=== PATIENT | male | born 1950 | race Caucasian/White ===

== ENCOUNTER → 2018-06-27 07:54 | Outpatient (CLI) | payer MEDICARE, SELFPAY ==
[2018-06-27 09:44] LABS: Add Manual Diff / Slide Review NO; Eosinophils Percent Auto 2.6 % (2-4); Hematocrit 39.8 % (41-53); Hemoglobin 13.7 g/dL (13.5-17.5); Lymphocytes Percent Auto 18.3 % (25-40); Mean Corpuscular HGB Conc 34.4 % (30-36); Mean Corpuscular Volume 90.2 fL (80-100); Neutrophils Absolute Auto 2700 /uL (3000-5900); Neutrophils Percent Auto 62.1 % (50-75); Platelet Count 310 X10^3/uL (150-400); Red Blood Cell Count 4.42 X10^6/uL (4.5-5.9); Red Cell Distribution Width 13.8 % (11.6-14.8); White Blood Cell Count 4.4 X10^3/uL (4.5-11.0)
[2018-06-27 09:50] LABS: Hemoglobin A1C% w Est Avg Glu 9.1 % (4.0-6.0)
[2018-06-27 10:45] LABS: Creatinine Urine Random 67.9 mg/dL
[2018-06-27 10:49] LABS: Microalbumi Creatinin Ratio Ur 17.6 ug/mg CR (<30); Microalbumin Urine Random 1.2 mg/dL (0-1.6)
[2018-06-27 10:50] LABS: Alanine Aminotransferase 61 IU/L (21-72); Albumin 3.9 g/dL (3.5-5.0); Albumin Globulin Ratio 1.1 (1.0-2.8); Alkaline Phosphatase 115 U/L (38-126); Aspartate Aminotransferase 36 IU/L (17-59); Bilirubin Total 0.5 mg/dL (0.2-1.3); Blood Urea Nitrogen 14 mg/dL (9-20); Calcium 9.5 mg/dL (8.4-10.2); Carbon Dioxide 29 mmol/L (22-32); Chloride 100 mmol/L (98-107); Cholesterol 125 mg/dL (140-199); Estimated Glomerular Filt Rate > 60.0 mL/min (>60); Globulin 3.7 g/dL (1.7-4.1); Glucose 98 mg/dL (80-110); HDL Cholesterol 27 mg/dL (40-60); HEMOLYSIS < 15 (0-50); LDL Cholesterol Calculated 90 mg/dL (<100); Potassium 4.2 mmol/L (3.4-5.1); Sodium 141 mmol/L (137-145); Total Protein 7.6 g/dL (6.3-8.2); Triglycerides 41 mg/dL (35-150)
[2018-06-27 11:15] LABS: Thyroid Stimulating Hormone 2.97 uIU/mL (0.47-4.68)
[2018-06-27 11:16] LABS: Prostate Specific Antigen Scrn 0.205 ng/mL (0.1-4.0)
== END ==
PROVIDERS: Family Provider Family Medicine; PCP Family Medicine; Visit Provider Family Medicine
DX: E11.9 Type 2 diabetes mellitus without complications (principal); E11.319 Type 2 diabetes mellitus with unspecified diabetic retinopathy without macular edema; E03.9 Hypothyroidism, unspecified; E78.00 Pure hypercholesterolemia, unspecified; Z00.00 Encounter for general adult medical examination without abnormal findings
CPT/HCPCS: 36415; 80053; 80061; 82043; 82570; 83036; 84443; 85025; G0103

== ENCOUNTER → 2018-11-09 09:04 | Outpatient (CLI) | payer MEDICARE, SELFPAY ==
--- NOTE | 2018-11-09 | DI.RAD.S_ITS ---
PROCEDURE: FL UPPER GI W AIR INDICATIONS: DYSPHAGIA/HYPOTHYROIDISM COMPARISON: None. FINDINGS: KUB: Preprocedural roustabout crew film demonstrates a normal bowel gas pattern. No suspicious abdominal calcifications. Visualized solid organ contours appear normal. Bony structures demonstrate a T12 compression fracture and asymmetric L4-5 disc height loss. Esophagus: Esophageal mucosa is normal on air-contrast views. On single-contrast views, there are moderate reactive tertiary contractions of the distal esophagus. There no fixed strictures. There is a small hiatal hernia in the recumbent position. No visible diverticula. A moderate amount of elicited gastroesophageal reflux is present in the recumbent position. Stomach: The stomach is normally distensible, with normal rugal fold thickness. No mucosal masses or ulcers. Pylorus and duodenal bulb appear normal in morphology. Duodenal folds are normal in thickness as well. There was prompt gastric emptying resulted in suboptimal coating of the stomach. IMPRESSION: 1. Small hiatal hernia in the recumbent position only. 2. Moderate inducible gastroesophageal reflux in the recumbent position. 3. Moderate tertiary contractions of the distal esophagus. 4. Normal stomach and proximal bowel loops. Dictated by: Nissa Bethea M.D. on 11/09/2018 at 11:34 Approved by: Nissa Bethea M.D. on 11/09/2018 at 11:59
== END ==
PROVIDERS: Family Provider Family Medicine; PCP Family Medicine; Visit Provider Family Medicine
DX: R13.10 Dysphagia, unspecified (principal); K44.9 Diaphragmatic hernia without obstruction or gangrene; K21.9 Gastro-esophageal reflux disease without esophagitis; E03.9 Hypothyroidism, unspecified
CPT/HCPCS: 74247

== ENCOUNTER → 2019-05-29 07:50 | Outpatient (CLI) | payer MEDICARE, SELFPAY ==
[2019-05-29 09:28] LABS: Creatinine Urine Random 37.8 mg/dL; Hemoglobin A1C% w Est Avg Glu 8.9 % (4.0-6.0)
[2019-05-29 09:29] LABS: Cholesterol 132 mg/dL (140-199); HDL Cholesterol 27 mg/dL (40-60); LDL Cholesterol Calculated 98 mg/dL (<100); Triglycerides 33 mg/dL (35-150)
[2019-05-29 09:42] LABS: Microalbumi Creatinin Ratio Ur 15.8 ug/mg CR (<30); Microalbumin Urine Random < 0.6 mg/dL (0-1.6)
== END ==
PROVIDERS: PCP Family Medicine; Visit Provider Family Medicine
DX: E11.9 Type 2 diabetes mellitus without complications (principal); E11.319 Type 2 diabetes mellitus with unspecified diabetic retinopathy without macular edema
CPT/HCPCS: 36415; 80061; 82043; 82570; 83036

== ENCOUNTER 2019-06-14 06:20 | Day surgery (SDC) | payer MEDICARE, SELFPAY ==
[2019-06-08 14:53] VITALS: BMI 24.8
[2019-06-14] VITALS (10 sets, daily range): BP systolic 112–148; BP diastolic 60–83; PULSE 46–62; RESP 8–20; TEMP 36.1–36.6; O2SAT 94–99; BMI 24.4
[2019-06-14] MEDS: LACTATED RINGERS 1,000 ML 42 ML IV ×2 (07:26→11:10)
--- NOTE | 2019-06-14 07:54 | PM.HP.1 ---
History of Present Illness History of Present Illness Date Patient Seen: 06/14/19 Time Patient Seen: 07:47 Chief complaint: [id number] Narrative: The patient is a gentleman here for repair bilateral inguinal hernias. There are longstanding. Patient History Medical History Arthritis (Acute) Diabetes (Chronic) GERD (gastroesophageal reflux disease) (Acute) Hearing impaired (Acute) Surgical History Hx of appendectomy (Resolved) Hx of total knee replacement (Resolved) Social History marital status: household members: spouse and friend(s) occupational status: employed Smoking Status: Never smoker alcohol intake: never substance use type: does not use Family & Social History Social History: household members spouse,friend(s) Tobacco & Substance use: Smoking Status Never smoker alcohol intake never Substance Use Type does not use Meds Home Medications and Allergies Home Medications Medication Instructions Recorded Confirmed Type insulin glargine 100 unit/mL (3 15 unit SUBCUT BID 04/21/19 06/14/19 History mL) subcutaneous pen insulin lispro 100) 100 unit/mL 2 - 10 unit SUBCUT QAC 04/21/19 06/14/19 History subcutaneous pen levothyroxine 125 mcg capsule 175 mcg PO DAILY 04/21/19 06/14/19 History omeprazole 20 mg PO DAILY 06/08/19 06/14/19 History meloxicam 15 mg PO DAILY PRN 06/14/19 06/14/19 History Allergies Allergy/AdvReac Type Severity Reaction Status Date / Time Penicillins Allergy Unknown Rash Verified 06/14/19 07:36 Review of Systems Review of Systems ROS Unobtainable: All systems reviewed & are unremarkable except as noted in HPI and below Exam Vital Signs (past 8 hours): - 06/14/19 07:04 Temperature 97.9 F Pulse Rate 62 Respiratory Rate 15 Blood Pressure 148/81 H Pulse Oximetry 98 Oxygen Delivery Method Room Air Narrative Exam Narrative: Operative no apparent distress. Eyes are nonicteric. Lungs are clear. Heart regular rate and rhythm without murmur gallop. Abdomen is scaphoid soft nontender without mass. He has bilateral reducible inguinal hernias. Alert and oriented x3. Assessment & Plan Assessment & Plan narrative: Bilateral inguinal hernias. He is also diabetic and has reflux and hypothyroidism. I have discussed the procedure with him. Risks bleeding infection nerve injury testicular injury vas deferens injury all discussed. Chronic pain or numbness discussed. He asked about the use of mesh and desires to have it used to reduce the risk of recurrence as compared with suture repair
--- NOTE | 2019-06-14 07:57 | PM.PREOP ---
Pre-operative Note Interval Note History & Physical reviewed/Exam performed by Physician: Yes Changes to H&P: No
[2019-06-14] MEDS: CEFAZOLIN 2 GM/100 ML FROZ.PIGGY IV (08:00)
--- NOTE | 2019-06-14 08:21 | SUR.OPER ---
Supine on padded OR bed, head on pillow, arms secured on padded arm boards at <90 degrees abduction, legs uncrossed, safety belt at thigh, tape over blanket over lower legs.
--- NOTE | 2019-06-14 08:29 | SUR.OPER ---
Patient's CBG rechecked at 0830. = 151. recheck in 1 hour.
[2019-06-14] MEDS: BUPIVACAINE 0.5% (PF) VIAL 30 ML INJ (08:32)
--- NOTE | 2019-06-14 09:35 | SUR.OPER ---
BLOOD GLUCOSE 122 AT 0930
--- NOTE | 2019-06-14 10:23 | SUR.PHASEI ---
1018 Pt. aroused spontaneously, oral airway dc'd. Dr Vale informed of glucose 162; no orders. HR 40s-50's: no orders unless symptomatic. 1024 Very drowsy, looking around, moving, taking ice chips, but doesn't answer questions regarding pain or nausea.
--- NOTE | 2019-06-14 10:32 | SUR.PHASEI ---
HOB elevated, water given. Denies dizziness. Rates pain 6/10, desires IV rx.
[2019-06-14] MEDS: fentaNYL 100 MCG/2 ML INJ 50 MCG IV ×2 (10:35→10:50)
--- NOTE | 2019-06-14 10:41 | PM.OP.1 ---
Operative Date/Time/Diagnoses Date of procedure: 06/14/19 Time of procedure: 10:10 Pre-op diagnosis: Bilateral inguinal hernias. Reducible. Post-op diagnosis: same (Indirect.) Procedure & Clinicians Procedure: Repair with plug and patch technique bilateral Same procedure as scheduled: Yes Indications: Symptomatic hernias Surgeon: Ben Hayes Click Yes if Unassisted: Yes Anesthesia Type: General Operative Notes Findings: Bilateral indirect hernias Closure Type: primary Specimen(s): none sent Prosthetic devices, grafts, tissues, transplants, or devices: Mesh Estimated Blood Loss (mL): 15 Blood products transfused: none Procedure in detail: The patient was placed supine on the operating room table and underwent general LMA anesthesia. He was prepped and draped in the usual fashion. A transverse incision was made overlying the internal ring on the right and carried down to the level of the external oblique. The external oblique was opened parallel with its fibers through the external ring. The cord structures were elevated. The cremaster was opened proximally and search made for an indirect sac. One was found. It was from surrounding structures, opened and found to have no contents. A 2 0 silk pursestring was used to close it and then an additional tie placed. The stump was allowed to retract. A medium plug was placed in the defect created by the hernia sac. Was tacked into place with interrupted 0 Ethibond suture. The cremaster was closed with 3 0 Vicryl.. The floor was examined and was found to be fairly intact.. A patch was placed across the floor and tacked at the pubic tubercle, the posterior lamella of the anterior rectus sheath, the ilioinguinal ligament, and superior lateral to the cord. The opening was modified as necessary to prevent tight constriction of the cord. Sutures of 0 Ethibond were used to secure the mesh. The external oblique was closed with a running 3 0 Vicryl. The subcu was closed with interrupted 3 0 Vicryl. The skin was closed with a running 4 0 Vicryl subcuticular stitch . And identical repair was performed on the opposite side. The findings were essentially the same. The repair was done in the same manner as was the closure. Once completed local anesthetic was infiltrated around both incisions. Mastisol and Steri-Strips were applied to both sides. Dressings were applied, the patient was awakened, and the patient was taken to the recovery area in good condition. Complications: none Post-operative Condition: stable Disposition: PACU
[2019-06-14] MEDS: OXYCODONE/ACETAMINOPHEN 5/325 TABLET 1 TAB PO (10:50)
--- NOTE | 2019-06-14 10:57 | SUR.PHASEI ---
1050 IV and PO rx given; (applesause prior to PO). Put back on O2 at 2LNP for desat down to 88%, rebounded quickly when encouraged to deep breath.
--- NOTE | 2019-06-14 11:08 | SUR.PHASEI ---
Blood sugar 191, phoned into the OR, do not treat per Dr. Vale/Minerva, RN
--- NOTE | 2019-06-14 11:25 | SUR.PHASEI ---
Report given, dressings remain CDI, OPD will check O2 level to confirm maintaining sat. Very drowsy, minimal verbal responses.
== END 2019-06-14 11:50 | disposition home or self-care (01) ==
PROVIDERS: PCP Family Medicine; Visit Provider Specialist
PROC: (CPT 49505; principal; 2019-06-14 07:45)
DX: K40.20 Bilateral inguinal hernia, without obstruction or gangrene, not specified as recurrent (principal); E11.9 Type 2 diabetes mellitus without complications; Z79.4 Long term (current) use of insulin
CPT/HCPCS: 49505; C1781; J0690; J2405; J2704; J3010

== ENCOUNTER → 2019-07-22 15:02 | Outpatient (CLI) | payer MEDICARE, SELFPAY ==
--- NOTE | 2019-07-22 | DI.RAD.S_ITS ---
PROCEDURE: XR WRIST LT MIN 3V INDICATIONS: BILATERAL WRIST PAIN TECHNIQUE: 3 views of the wrist were acquired. COMPARISON: [facility], CR, XR WRIST RT MIN 3V, 07/22/2019, 15:02. FINDINGS: Bones: No fractures or dislocations. No suspicious bony lesions. There is severe degenerative changes at the radial carpal joint, first metacarpal joint, and moderate degenerative joint disease in multiple intercarpal joints. There is a lucency in the distal ulna. There is bony erosion in the distal radius at the distal radioulnar joint. Soft tissues: Vascular calcifications consistent with atherosclerosis. IMPRESSION: 1. Severe osteoarthritis. 2. There is erosion in the distal radius at the at the distal radioulnar joint, raising the concern of erosive OA 3. Lucency in distal ulna is most likely caused by a large cyst. If there is persistent history of cancer and clinical suspicion for metastatic disease, MRI is suggested for further evaluation. Dictated by: Luther Bob M.D. on 07/22/2019 at 17:20 Approved by: Luther Bob M.D. on 07/22/2019 at 17:24
--- NOTE | 2019-07-22 | DI.RAD.S_ITS ---
PROCEDURE: XR WRIST RT MIN 3V INDICATIONS: BILATERAL WRIST PAIN TECHNIQUE: 3 views of the wrist were acquired. COMPARISON: None. FINDINGS: Bones: No fractures or dislocations. No suspicious bony lesions. There is severe degenerative joint disease in radiocarpal joint, ulnocarpal joint and triscaphe joint. Lucencies in the distal radius, distal ulna and carpal bones are most likely geodes. There is erosion in distal radius along the greater carpal articular surface. Soft tissues: Vascular calcifications consistent with atherosclerosis. There is mild soft tissue swelling. IMPRESSION: Severe degenerative joint disease. There is bone erosion in the distal radius suggesting an inflammatory arthritis such as erosive OA or rheumatoid arthritis. Recommend clinical correlation. Dictated by: Luther Bob M.D. on 07/22/2019 at 17:24 Approved by: Luther Bob M.D. on 07/22/2019 at 17:27
== END ==
PROVIDERS: PCP Family Medicine; Visit Provider Family Medicine
DX: M25.532 Pain in left wrist (principal); M25.531 Pain in right wrist; M19.032 Primary osteoarthritis, left wrist; M19.031 Primary osteoarthritis, right wrist
CPT/HCPCS: 73110

== ENCOUNTER 2019-08-31 07:35 | Day surgery (SDC) | payer MEDICARE, SELFPAY ==
[2019-08-31 08:05] VITALS: BP 133/79; PULSE 76; RESP 15; TEMP 36.4; O2SAT 96; BMI 24.4
[2019-08-31] MEDS: SODIUM CHLORIDE 0.9% 1,000 ML 200 ML IV (08:48)
--- NOTE | 2019-08-31 08:48 | PM.HP.1 ---
History of Present Illness History of Present Illness Date Patient Seen: 08/31/19 Time Patient Seen: 08:48 Chief complaint: [id number] Narrative: Patient is a gentleman who has some difficulty swallowing. Sometimes it feels like food gets stuck in his upper throat another times done at the bottom of his chest. He is here for an EGD Patient History Medical History Arthritis (Acute) Diabetes (Chronic) GERD (gastroesophageal reflux disease) (Acute) Hearing impaired (Acute) Surgical History (Updated 08/31/19 @ 08:49 by Ben Hayes MD) Hx of appendectomy (Resolved) Hx of total knee replacement (Resolved) Status post bilateral inguinal hernia repair, follow-up exam (Inactive) Family & Social History Social History: household members spouse,friend(s) Tobacco & Substance use: Smoking Status Never smoker alcohol intake never Substance Use Type does not use Meds Home Medications and Allergies Home Medications Medication Instructions Recorded Confirmed Type insulin glargine 100 unit/mL (3 15 unit SUBCUT BID 04/21/19 08/31/19 History mL) subcutaneous pen insulin lispro 100 unit/mL 2 - 10 unit SUBCUT QAC 04/21/19 08/31/19 History subcutaneous pen levothyroxine 125 mcg capsule 175 mcg PO DAILY 04/21/19 08/31/19 History Allergies Allergy/AdvReac Type Severity Reaction Status Date / Time Penicillins Allergy Unknown Rash Verified 08/31/19 07:56 Review of Systems Review of Systems ROS Unobtainable: All systems reviewed & are unremarkable except as noted in HPI and below Endocrine Comments: Blood sugar was low this morning any took some apple juice. Present sugar 120 Exam Vital Signs (past 8 hours): - 08/31/19 08:05 Temperature 97.6 F Pulse Rate 76 Respiratory Rate 15 Blood Pressure 133/79 Pulse Oximetry 96 Oxygen Delivery Method Room Air Narrative Exam Narrative: Pleasant cooperative patient no apparent distress. Lungs are clear to auscultation. No rales or rhonchi. Heart regular rate and rhythm no murmur gallop. Abdomen is soft nontender without mass. No obvious hernias. Patient is alert and oriented x3. Assessment & Plan Assessment & Plan narrative: Patient with dysphagia for an EGD and possible dilatation. I've discussed this with the patient including risks of bleeding and perforation. Appears to understand wishes to proceed.
[2019-08-31] MEDS: LIDOCAINE 4% SOLN 50 ML 20 ML TOP (08:54)
[2019-08-31] MEDS: fentaNYL 250 MCG/5 ML INJ IV (08:57)
[2019-08-31] MEDS: MIDAZOLAM 5 MG/5 ML VIAL IV (08:57)
--- NOTE | 2019-08-31 09:05 | PM.OP.ENDO ---
Operative Date/Time/Diagnoses Date of procedure: 08/31/19 Time of procedure: 09:05 Pre-op diagnosis: Dysphagia Post-op diagnosis: same (Nodule superior to the epiglottis.) Procedure & Clinicians Study performed: EGD Same procedure as scheduled: Yes Indications: Dysphagia Surgeon: Ben Hayes Procedure Notes SCOAP/Timeout: Per formed Procedure in detail: The patient had topical anesthetic applied to oropharynx. She was placed in left lateral decubitus position and underwent IV sedation directed by the surgeon consisting of fentanyl and Versed. A bite block was inserted and the scope was advanced through it into the oropharynx. As I passed the base of the tongue I encountered a nodule that was above and separate from the epiglottis. The scope was passed under direct vision into the esophagus. The esophagus was unremarkable. There was no evidence of a hiatal hernia from above.. The stomach insufflated well. There were no lesions seen in the body, antrum or at the incisura. The pyloric channel was patent. The duodenum was unremarkable to the 3rd part. The scope was brought back into the stomach and retroflexed. The proximal stomach was normal. There may be a very small hiatal hernia seen on retroflexed view. This was not apparent advancing through the esophagus however.. The scope was straightened and brought out through the esophagus again. No lesions were seen. There was no narrowing in the esophagus. The distal esophagus and the proximal were carefully examined and I could see no evidence of narrowing. The scope was removed and the patient tolerated the procedure well. Scope withdrawal time: Not applicable Sedation minutes: 9 Findings: other findings (Nodule near the base of the tongue) Specimen(s): none sent Complications: none Post-procedure Recommendations: Other recommendation (Will refer to ENT to evaluate the nodule I saw. Photographs will be given to the patient.) Follow up: as needed Disposition: PACU
[2019-08-31 09:14] VITALS: BP 113/64; PULSE 56; RESP 12; O2SAT 93
[2019-08-31 09:15] VITALS: BP 109/70; PULSE 59; RESP 13; O2SAT 92
[2019-08-31 09:19] VITALS: BP 109/68; PULSE 66; RESP 13; O2SAT 96
[2019-08-31 09:25] VITALS: BP 125/74; PULSE 61; RESP 16; O2SAT 96
[2019-08-31 09:28] VITALS: BP 112/67; PULSE 60; RESP 10; TEMP 36.5; O2SAT 97
== END 2019-08-31 09:49 | disposition home or self-care (01) ==
PROVIDERS: PCP Family Medicine; Visit Provider Specialist
PROC: 0DJ08ZZ Inspection of Upper Intestinal Tract, Via Natural or Artificial Opening Endoscopic (ICD-10-PCS; CPT 43235; principal; 2019-08-31 08:45)
DX: J38.7 Other diseases of larynx (principal); K21.9 Gastro-esophageal reflux disease without esophagitis; E11.9 Type 2 diabetes mellitus without complications
CPT/HCPCS: 43235; 99152; J2250; J3010

== ENCOUNTER → 2019-12-30 10:56 | Outpatient (CLI) | payer MEDICARE, SELFPAY ==
[2019-12-30 12:11] LABS: Add Manual Diff / Slide Review NO; Basophils Absolute Auto 0 /uL (0-100); Basophils Percent Auto 0.5 % (0-2); Eosinophils Absolute Auto 100 /uL (0-450); Eosinophils Percent Auto 1.6 % (2-4); Hemoglobin 12.3 g/dL (13.5-17.5); Lymphocytes Absolute Auto 1000 /uL (1100-4500); Lymphocytes Percent Auto 17.4 % (25-40); Mean Corpuscular HGB Conc 34.1 % (30-36); Mean Corpuscular Hemoglobin 31.5 PG (26-34); Mean Corpuscular Volume 92.3 fL (80-100); Monocytes Absolute Auto 300 /uL (0-900); Monocytes Percent Auto 5.4 % (3-14); Neutrophils Absolute Auto 4200 /uL (1500-7000); Neutrophils Percent Auto 75.1 % (50-75); Platelet Count 286 X10^3/uL (150-400); White Blood Cell Count 5.6 X10^3/uL (4.5-11.0)
[2019-12-30 12:28] LABS: Alanine Aminotransferase 29 IU/L (<50); Albumin Globulin Ratio 1.1 (1.0-2.8); Alkaline Phosphatase 109 U/L (38-126); Aspartate Aminotransferase 27 IU/L (17-59); Bilirubin Total 0.3 mg/dL (0.2-1.3); Blood Urea Nitrogen 24 mg/dL (9-20); Calcium 9.8 mg/dL (8.4-10.2); Carbon Dioxide 24 mmol/L (22-32); Chloride 99 mmol/L (98-107); Estimated Glomerular Filt Rate > 60.0 mL/min (>60); Globulin 3.7 g/dL (1.7-4.1); Glucose 275 mg/dL (80-110); HEMOLYSIS < 15 (0-50); Potassium 4.5 mmol/L (3.4-5.1); Sodium 134 mmol/L (137-145); Total Protein 7.7 g/dL (6.3-8.2)
[2019-12-30 12:29] LABS: C-Reactive Protein Quant < 0.5 mg/dL (<1.0)
[2019-12-30 12:32] LABS: Erythrocyte Sedimentation Rate 59 MM/HR (0-15)
== END ==
PROVIDERS: PCP Family Medicine; Referring Provider Internal Medicine Rheumatology; Visit Provider Internal Medicine Rheumatology
DX: M19.90 Unspecified osteoarthritis, unspecified site (principal)
CPT/HCPCS: 36415; 80053; 85025; 85651; 86140

== ENCOUNTER → 2020-02-29 09:30 | Outpatient (CLI) | payer MEDICARE, SELFPAY ==
[2020-02-29 11:08] LABS: Hemoglobin A1C% w Est Avg Glu 9.4 % (4.0-6.0)
[2020-02-29 11:26] LABS: Alanine Aminotransferase 32 IU/L (<50); Albumin 3.8 g/dL (3.5-5.0); Albumin Globulin Ratio 1.2 (1.0-2.8); Alkaline Phosphatase 96 U/L (38-126); Aspartate Aminotransferase 29 IU/L (17-59); BUN Creatinine Ratio 23.1 (6-22); Bilirubin Total 0.6 mg/dL (0.2-1.3); Blood Urea Nitrogen 21 mg/dL (9-20); Calcium 9.6 mg/dL (8.4-10.2); Carbon Dioxide 24 mmol/L (22-32); Chloride 103 mmol/L (98-107); Estimated Glomerular Filt Rate > 60.0 mL/min (>60); Globulin 3.2 g/dL (1.7-4.1); Glucose 123 mg/dL (80-110); HEMOLYSIS < 15 (0-50); Potassium 4.6 mmol/L (3.4-5.1); Sodium 135 mmol/L (137-145)
== END ==
PROVIDERS: PCP Family Medicine; Referring Provider Family Medicine; Visit Provider Family Medicine
DX: E11.319 Type 2 diabetes mellitus with unspecified diabetic retinopathy without macular edema (principal)
CPT/HCPCS: 36415; 80053; 83036

== ENCOUNTER → 2020-05-17 07:45 | Outpatient (CLI) | payer MEDICARE, SELFPAY ==
[2020-05-17 08:35] LABS: Add Manual Diff / Slide Review NO; Basophils Absolute Auto 0 /uL (0-100); Eosinophils Absolute Auto 200 /uL (0-450); Eosinophils Percent Auto 5.2 % (2-4); Hematocrit 35.7 % (41-53); Hemoglobin 11.9 g/dL (13.5-17.5); Lymphocytes Absolute Auto 700 /uL (1100-4500); Lymphocytes Percent Auto 22.4 % (25-40); Mean Corpuscular HGB Conc 33.2 % (30-36); Mean Corpuscular Hemoglobin 31.6 PG (26-34); Mean Corpuscular Volume 95.3 fL (80-100); Monocytes Absolute Auto 500 /uL (0-900); Monocytes Percent Auto 14.3 % (3-14); Neutrophils Absolute Auto 1900 /uL (1500-7000); Neutrophils Percent Auto 57.1 % (50-75); Platelet Count 252 X10^3/uL (150-400); Red Blood Cell Count 3.75 X10^6/uL (4.5-5.9); Red Cell Distribution Width 14.4 % (11.6-14.8); White Blood Cell Count 3.3 X10^3/uL (4.5-11.0)
[2020-05-17 08:53] LABS: Alanine Aminotransferase 50 IU/L (<50); Albumin 3.7 g/dL (3.5-5.0); Albumin Globulin Ratio 1.2 (1.0-2.8); Alkaline Phosphatase 87 U/L (38-126); Aspartate Aminotransferase 41 IU/L (17-59); BUN Creatinine Ratio 22.4 (6-22); Bilirubin Total 0.5 mg/dL (0.2-1.3); Blood Urea Nitrogen 22 mg/dL (9-20); Calcium 9.9 mg/dL (8.4-10.2); Carbon Dioxide 31 mmol/L (22-32); Chloride 103 mmol/L (98-107); Estimated Glomerular Filt Rate > 60.0 mL/min (>60); Globulin 3.1 g/dL (1.7-4.1); Glucose 91 mg/dL (80-110); HEMOLYSIS < 15 (0-50); Potassium 4.6 mmol/L (3.4-5.1); Sodium 138 mmol/L (137-145); Total Protein 6.8 g/dL (6.3-8.2)
[2020-05-17 08:54] LABS: C-Reactive Protein Quant < 0.5 mg/dL (<1.0)
[2020-05-17 08:58] LABS: Erythrocyte Sedimentation Rate 33 MM/HR (0-15)
== END ==
PROVIDERS: PCP Family Medicine; Referring Provider Internal Medicine Rheumatology; Visit Provider Internal Medicine Rheumatology
DX: M19.90 Unspecified osteoarthritis, unspecified site (principal); Z51.81 Encounter for therapeutic drug level monitoring
CPT/HCPCS: 36415; 80053; 85025; 85651; 86140

== ENCOUNTER → 2020-06-28 08:11 | Outpatient (CLI) | payer MEDICARE, SELFPAY ==
[2020-06-28 08:51] LABS: Add Manual Diff / Slide Review NO; Basophils Absolute Auto 0 /uL (0-100); Basophils Percent Auto 0.6 % (0-2); Eosinophils Absolute Auto 100 /uL (0-450); Eosinophils Percent Auto 1.6 % (2-4); Hematocrit 35.9 % (41-53); Hemoglobin 12.3 g/dL (13.5-17.5); Lymphocytes Absolute Auto 900 /uL (1100-4500); Lymphocytes Percent Auto 13.3 % (25-40); Mean Corpuscular HGB Conc 34.3 % (30-36); Mean Corpuscular Hemoglobin 31.8 PG (26-34); Mean Corpuscular Volume 92.9 fL (80-100); Monocytes Absolute Auto 700 /uL (0-900); Monocytes Percent Auto 10.1 % (3-14); Neutrophils Absolute Auto 4800 /uL (1500-7000); Neutrophils Percent Auto 74.4 % (50-75); Platelet Count 301 X10^3/uL (150-400); Red Blood Cell Count 3.87 X10^6/uL (4.5-5.9); Red Cell Distribution Width 13.6 % (11.6-14.8); White Blood Cell Count 6.5 X10^3/uL (4.5-11.0)
[2020-06-28 09:14] LABS: Erythrocyte Sedimentation Rate 31 MM/HR (0-15)
[2020-06-28 09:28] LABS: Alanine Aminotransferase 90 IU/L (<50); Albumin 3.5 g/dL (3.5-5.0); Albumin Globulin Ratio 1.2 (1.0-2.8); Alkaline Phosphatase 103 U/L (38-126); Aspartate Aminotransferase 77 IU/L (17-59); BUN Creatinine Ratio 17.3 (6-22); Bilirubin Total 0.5 mg/dL (0.2-1.3); Blood Urea Nitrogen 18 mg/dL (9-20); Calcium 9.1 mg/dL (8.4-10.2); Carbon Dioxide 27 mmol/L (22-32); Chloride 102 mmol/L (98-107); Estimated Glomerular Filt Rate > 60.0 mL/min (>60); Globulin 2.9 g/dL (1.7-4.1); Glucose 141 mg/dL (80-110); HEMOLYSIS < 15 (0-50); Potassium 4.8 mmol/L (3.4-5.1); Sodium 135 mmol/L (137-145); Total Protein 6.4 g/dL (6.3-8.2)
[2020-06-28 09:51] LABS: C-Reactive Protein Quant < 0.5 mg/dL (<1.0)
== END ==
PROVIDERS: PCP Family Medicine; Referring Provider Internal Medicine Rheumatology; Visit Provider Internal Medicine Rheumatology
DX: M06.09 Rheumatoid arthritis without rheumatoid factor, multiple sites (principal)
CPT/HCPCS: 36415; 80053; 85025; 85651; 86140

== ENCOUNTER → 2020-08-15 06:53 | Outpatient (CLI) | payer MEDICARE, SELFPAY ==
--- NOTE | 2020-08-15 | DI.US.S_ITS ---
PROCEDURE: US ABDOMEN COMPLETE INDICATIONS: GERD, BLOATING TECHNIQUE: Real-time scanning was performed of the abdominal and retroperitoneal organs, with image documentation. COMPARISON: None. FINDINGS: Liver: Liver is normal in size and homogeneous in echotexture. Gallbladder: The gallbladder appears normal Biliary ducts: Intrahepatic bile ducts are non-dilated. Extrahepatic bile duct caliber measures 5.1 mm. Normal is 6-7 mm or less in diameter, or 10 mm or less post-cholecystectomy. Pancreas: Not seen due to bowel gas Spleen: Spleen is normal in size and homogeneous in echotexture. Kidneys: Kidneys are normal in size and echotexture. Right kidney measures 12.3 cm long; left kidney measures 13.3 cm long. No hydronephrosis or nephrolithiasis. No solid masses. Aorta: Visualized aorta is normal in caliber at less than 3 cm. Iliacs: Proximal common iliac arteries are normal in caliber at less than 2.5 cm. IVC: Intrahepatic inferior vena cava is patent. Miscellaneous: No free abdominal fluid. IMPRESSION: No sign of ascites, no acute disease found. The pancreas could not be well seen due to bowel gas. Dictated by: Jese Rogers M.D. on 08/15/2020 at 9:41 Approved by: Jese Rogers M.D. on 08/15/2020 at 9:42
--- NOTE | 2020-08-15 | DI.RAD.S_ITS ---
PROCEDURE: XR CHEST 2V INDICATIONS: ATYPICAL CHEST PAIN TECHNIQUE: 2 views of the chest were acquired. COMPARISON: [facility], CHEST 2 VIEW, 12/12/2016, 16:36. [facility], CHEST 2 VIEW, 01/04/2016, 17:34. FINDINGS: Surgical changes and devices: None. Lungs and pleura: Lungs are clear. No pleural effusions or pneumothorax. Mediastinum: Mediastinal contours are normal. Heart size is normal. Bones and chest wall: No suspicious bony abnormalities. Soft tissues appear unremarkable. IMPRESSION: Source of atypical chest pain is not seen. Dictated by: Jese Rogers M.D. on 08/15/2020 at 9:21 Approved by: Jese Rogers M.D. on 08/15/2020 at 9:21
== END ==
PROVIDERS: PCP Family Medicine; Referring Provider Family Medicine; Visit Provider Family Medicine
DX: K21.9 Gastro-esophageal reflux disease without esophagitis (principal); R14.0 Abdominal distension (gaseous); R07.89 Other chest pain
CPT/HCPCS: 71046; 76700

== ENCOUNTER → 2021-12-15 07:49 | Outpatient (CLI) | payer MEDICARE, SELFPAY ==
[2021-12-15 08:56] LABS: Add Manual Diff / Slide Review NO; Basophils Absolute Auto 0 /uL (0-100); Basophils Percent Auto 0.7 % (0-2); Eosinophils Absolute Auto 100 /uL (0-450); Eosinophils Percent Auto 2.3 % (2-4); Hematocrit 36.8 % (41-53); Hemoglobin 12.6 g/dL (13.5-17.5); Lymphocytes Absolute Auto 1100 /uL (1100-4500); Lymphocytes Percent Auto 19.5 % (25-40); Mean Corpuscular HGB Conc 34.1 % (30-36); Mean Corpuscular Hemoglobin 30.1 PG (26-34); Mean Corpuscular Volume 88.4 fL (80-100); Monocytes Absolute Auto 800 /uL (0-900); Monocytes Percent Auto 14.9 % (3-14); Neutrophils Absolute Auto 3400 /uL (1500-7000); Neutrophils Percent Auto 62.6 % (50-75); Platelet Count 337 X10^3/uL (150-400); Red Blood Cell Count 4.17 X10^6/uL (4.5-5.9); Red Cell Distribution Width 14.2 % (11.6-14.8); White Blood Cell Count 5.5 X10^3/uL (4.5-11.0)
[2021-12-15 09:06] LABS: Alanine Aminotransferase 49 IU/L (<50); Albumin Globulin Ratio 1.1 (1.0-2.8); Alkaline Phosphatase 121 U/L (38-126); Aspartate Aminotransferase 37 IU/L (17-59); Bilirubin Total 0.5 mg/dL (0.2-1.3); Blood Urea Nitrogen 21 mg/dL (9-20); Calcium 9.5 mg/dL (8.4-10.2); Carbon Dioxide 25 mmol/L (22-32); Chloride 101 mmol/L (98-107); Cholesterol 134 mg/dL (140-199); Estimated Glomerular Filt Rate > 60.0 mL/min (>60); Globulin 3.6 g/dL (1.7-4.1); Glucose 291 mg/dL (80-110); HDL Cholesterol 24 mg/dL (40-60); HEMOLYSIS < 15 (0-50); LDL Cholesterol Calculated 99 mg/dL (<100); Potassium 4.9 mmol/L (3.4-5.1); Sodium 135 mmol/L (137-145); Total Protein 7.6 g/dL (6.3-8.2); Triglycerides 54 mg/dL (35-150)
[2021-12-15 09:33] LABS: Prostate Specific Antigen Scrn 0.254 ng/mL (0.1-4.0)
[2021-12-15 09:34] LABS: TSH w/ Reflex to FT4 0.98 uIU/mL (0.47-4.68)
== END ==
PROVIDERS: PCP Family Medicine; Referring Provider Family Medicine; Visit Provider Family Medicine
DX: E11.9 Type 2 diabetes mellitus without complications (principal); Z12.5 Encounter for screening for malignant neoplasm of prostate; E78.00 Pure hypercholesterolemia, unspecified; E03.9 Hypothyroidism, unspecified
CPT/HCPCS: 36415; 80053; 80061; 83036; 84443; 85025; G0103

== ENCOUNTER → 2023-04-04 08:46 | Outpatient (CLI) | payer MEDICARE, SELFPAY ==
[2023-04-04 09:46] LABS: Add Manual Diff / Slide Review NO; Basophils Absolute Auto 0 /uL (0-100); Basophils Percent Auto 0.6 % (0-2); Eosinophils Absolute Auto 200 /uL (0-450); Eosinophils Percent Auto 3.2 % (2-4); Hematocrit 37.4 % (41-53); Hemoglobin 12.6 g/dL (13.5-17.5); Lymphocytes Absolute Auto 800 /uL (1100-4500); Lymphocytes Percent Auto 14.9 % (25-40); Mean Corpuscular HGB Conc 33.7 % (30-36); Mean Corpuscular Hemoglobin 29.9 PG (26-34); Mean Corpuscular Volume 88.8 fL (80-100); Monocytes Absolute Auto 600 /uL (0-900); Monocytes Percent Auto 11.7 % (3-14); Neutrophils Absolute Auto 3600 /uL (1500-7000); Neutrophils Percent Auto 69.6 % (50-75); Platelet Count 309 X10^3/uL (150-400); Red Blood Cell Count 4.21 X10^6/uL (4.5-5.9); Red Cell Distribution Width 13.6 % (11.6-14.8); White Blood Cell Count 5.2 X10^3/uL (4.5-11.0)
[2023-04-04 10:19] LABS: Alanine Aminotransferase 52 IU/L (<50); Albumin 3.9 g/dL (3.5-5.0); Albumin Globulin Ratio 1.1 (1.0-2.8); Alkaline Phosphatase 188 U/L (38-126); Aspartate Aminotransferase 31 IU/L (17-59); BUN Creatinine Ratio 24.2 (6-22); Bilirubin Total 0.5 mg/dL (0.2-1.3); Blood Urea Nitrogen 23 mg/dL (9-20); Calcium 9.6 mg/dL (8.4-10.2); Carbon Dioxide 24 mmol/L (22-32); Chloride 96 mmol/L (98-107); Cholesterol 129 mg/dL (140-199); Estimated Glomerular Filt Rate > 60 mL/min (>60); Globulin 3.5 g/dL (1.7-4.1); Glucose 396 mg/dL (80-110); HDL Cholesterol 34 mg/dL (40-60); HEMOLYSIS < 15 (0-50); LDL Cholesterol Calculated 84 mg/dL (<100); Potassium 4.8 mmol/L (3.4-5.1); Sodium 130 mmol/L (137-145); Total Protein 7.4 g/dL (6.3-8.2); Triglycerides 57 mg/dL (35-150)
[2023-04-04 10:48] LABS: Thyroid Stimulating Hormone 1.71 uIU/mL (0.47-4.68)
== END ==
PROVIDERS: PCP Family Medicine; Referring Provider Family Medicine; Visit Provider Family Medicine
DX: E03.9 Hypothyroidism, unspecified (principal); E10.9 Type 1 diabetes mellitus without complications; N17.9 Acute kidney failure, unspecified; E78.00 Pure hypercholesterolemia, unspecified
CPT/HCPCS: 36415; 80053; 80061; 84443; 85025

== ENCOUNTER 2024-10-07 06:27 | Day surgery (SDC) | payer MEDICARE, SELFPAY ==
--- NOTE | 2024-10-07 | PATH_ITS ---
[facility] Accession Number: [id number] No. of containers..02 Tissue . 01 Material submitted: . PART A: duodenum - DUODENUM PART B: gastrointestinal site - ANTRUM . 01 Diagnosis: Part A: DUODENUM: Duodenal mucosa with severe villous blunting, increased intraepithelial lymphocytes, and focal mild active inflammation. See comment. . 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 The presence of focal active neutrophilic inflammation also raises a consideration of peptic injury, possibly superimposed on celiac disease. Correlation with clinical features and with serologic studies is recommended if indicated for further evaluation. . Part B: ANTRUM: Gastric mucosa with mild chronic inflammation and features of reactive gastropathy. No Helicobacter organisms identified. No intestinal metaplasia, dysplasia, or malignancy identified. [facility] 10/12/20241740 Local . 01 Electronically signed: . Tucker Moody MD, Pathologist NPI- [id number] . 01 Gross description: . A. Received in formalin with two patient identifiers and 1. Duodenum biopsy, are two benton soft tissue fragments, both measuring 0.3 cm in greatest dimension, submitted in A1. . B. Received in formalin with two patient identifiers and 2. Antrum biopsy, are three benton soft tissue fragments, 0.3-0.5 cm in greatest dimension, submitted in B1. ([id number]) /MRV 10/12/20241740 Local . 01 Microscopic: . Part B: ANTRUM: An immunohistochemical stain was performed to evaluate for Helicobacter organisms and is negative. The control stains appropriately. * This test was developed and the performance characteristics were validated by [employer]. It has not been cleared or approved by the Food and Drug Administration. . 01 Pathologist provided ICD-10: K29.50, K90.0 . 01 CPT . 598780, 394135, B92986 Specimen Comment: A courtesy copy of this report has been sent to [phone] Performed at: [address] [id number] MD Tucker Moody MD Phone: [phone]
[2024-10-07 06:50] VITALS: BP 158/84; PULSE 76; RESP 17; TEMP 36.2; O2SAT 97
[2024-10-07] MEDS: SODIUM CHLORIDE 0.9% 1,000 ML 84 ML IV (07:03)
--- NOTE | 2024-10-07 07:44 | P.HP_ITS ---
History of Present Illness History of Present Illness Date Patient Seen: 10/07/24 Time Patient Seen: 07:45 Chief complaint: EGD Narrative: Deuce is a 73 year old man with dysphagia. See November office note for details. [facility] Medical History (Updated 08/02/24 @ 09:30 by Jyoti Munguia RN) Hearing impaired Arthritis GERD (gastroesophageal reflux disease) Diabetes Surgical History Status post bilateral inguinal hernia repair, follow-up exam Hx of appendectomy Hx of total knee replacement Social History marital status: household members: spouse and friend(s) occupational status: employed Smoking Status: Never smoker alcohol intake: never substance use type: does not use Meds Home Medications and Allergies Home Medications Medication Instructions Recorded Confirmed Type insulin glargine 100 unit/mL (3 15 unit SUBCUT BID 04/21/19 10/07/24 History mL) subcutaneous pen (Lantus Solostar U-100 Insulin) levothyroxine 125 mcg capsule 175 mcg PO DAILY 04/21/19 10/07/24 History insulin lispro 100 unit/mL 30 unit SUBCUT QAC 08/02/24 10/07/24 History subcutaneous pen (Humalog KwikPen (U-100) Insulin) Allergies Allergy/AdvReac Type Severity Reaction Status Date / Time Penicillins Allergy Unknown Rash Verified 10/07/24 07:10 Exam Vital Signs (past 8 hours): - 10/07/24 06:50 Temperature 97.1 F L Pulse Rate 76 Respiratory Rate 17 Blood Pressure 158/84 H Pulse Oximetry 97 Oxygen Delivery Method Room Air Oxygen Delivery Method Room Air Const General: No acute distress Resp Effort & Inspection: normal respiratory effort Assessment & Plan Assessment and plan (1) Esophageal dysphagia: Status: Acute Plan EGD with possible balloon dilation if stricture found Time-Based Coding :: [TOTAL MINUTES] spent with patient and on the chart (including review of chart, obtaining history, exam, reviewing outside data, placing orders, documenting exam and treatment plan, and counseling patient) on [DATE].
--- NOTE | 2024-10-07 08:09 | P.OP.EGD_ITS ---
Operative Date/Time/Diagnoses Date of procedure: 10/07/24 Time of procedure: 08:09 Pre-op diagnosis: Dysphagia Post-op diagnosis: same Procedure & Clinicians Study performed: Esophagogastroduodenoscopy Balloon dilation to 15 mm Same procedure as scheduled: Yes Surgeon: Reji Toro Procedure Notes Procedure in detail: Surgeon: Reji Toro MD Anesthesia: Jesica Menchaca CRNA A timeout was performed. A bite blocked was placed. The patient was positioned in the left lateral decubitus position. Anesthesia was administered. The endoscope was inserted through the bite block and passed through the esophagus and stomach and into the duodenum. The duodenal mucosa appeared slightly the ne eded and pale. Random biopsies of the duodenal mucosa were taken with cold forceps. The scope was withdrawn into the duodenal bulb and no abnormalities were seen. The scope was withdrawn into the stomach. The antrum demonstrated mild antritis and random biopsies were taken from the antral mucosa with the cold forceps. The rest of the stomach was normal. The scope was retroflexed and a you very small hiatal hernia was noted. The scope was withdrawn into the esophagus and a mild distal esophageal stricture versus ring was observed. There was no evidence of Vázquez esophagus. The scope did easily traverse the distal esophagus. We performed a gentle balloon dilation at 12 mm for 30 seconds, 13.5 mm for 30 seconds and 15 mm for 30 seconds. The remainder of the esophagus was normal. The scope was withdrawn. The patient was awakened and brought to recovery. Sedation time: 12 minutes Findings: Slightly denuded, pale duodenal mucosa, mild antritis and a mild distal esophageal stricture Post-procedure Disposition: PACU
[2024-10-07 08:10] VITALS: BP 111/65; PULSE 52; RESP 14; TEMP 36.4; O2SAT 96
[2024-10-07 08:15] VITALS: BP 115/67; PULSE 52; RESP 14; O2SAT 95
[2024-10-07 08:20] VITALS: BP 119/74; PULSE 66; RESP 20; O2SAT 97
[2024-10-07 08:25] VITALS: BP 141/79; PULSE 60; RESP 15; TEMP 36.8; O2SAT 97
== END 2024-10-07 08:40 | disposition home or self-care (01) ==
PROVIDERS: PCP Family Medicine; Referring Provider Surgery; Visit Provider Surgery
PROC: 0DJ08ZZ Inspection of Upper Intestinal Tract, Via Natural or Artificial Opening Endoscopic (ICD-10-PCS; CPT 43249; principal; 2024-10-07 07:45)
DX: K22.2 Esophageal obstruction (principal); K29.50 Unspecified chronic gastritis without bleeding; K29.80 Duodenitis without bleeding; K44.9 Diaphragmatic hernia without obstruction or gangrene; R13.10 Dysphagia, unspecified; K21.9 Gastro-esophageal reflux disease without esophagitis; E11.9 Type 2 diabetes mellitus without complications; Z79.4 Long term (current) use of insulin; Z87.891 Personal history of nicotine dependence
CPT/HCPCS: 43249; 43239; J2704

== ENCOUNTER 2025-04-21 19:36 | Emergency (ER) | payer MEDICARE, SELFPAY ==
[2025-04-21 19:40] VITALS: BP 130/72; PULSE 114; RESP 16; TEMP 36.1; O2SAT 96; BMI 24.7
--- NOTE | 2025-04-21 22:57 | ED.EXTPRO ---
HPI - Extremity Problem General Chief complaint: Extremity Problem,Nontraumatic Stated complaint: Complications from surgery, bleeding from wound Time Seen by Provider: 04/21/25 19:55 Source: patient Mode of arrival: Wheelchair History of Present Illness HPI Narrative: 74-year-old gentleman had right heel surgery today and when he got home today noticed bleeding soaking through the wound dressing was told to come in to be evaluated. He is not currently on any blood thinners at this time. Other than what is stated 14 point review system is negative. Related Data Home Medications ?Medication ?Instructions ?Recorded ?Confirmed insulin glargine 100 unit/mL (3 15 unit SUBCUT BID 04/21/19 10/07/24 mL) subcutaneous pen (Lantus Solostar U-100 Insulin) levothyroxine 125 mcg capsule 175 mcg PO DAILY 04/21/19 10/07/24 insulin lispro 100 unit/mL 30 unit SUBCUT QAC 08/02/24 10/07/24 subcutaneous pen (Humalog KwikPen (U-100) Insulin) Allergies Allergy/AdvReac Type Severity Reaction Status Date / Time Penicillins Allergy Unknown Rash Verified 04/21/25 19:40 Review of Systems Review of Systems ROS Unobtainable: All systems reviewed & are unremarkable except as noted in HPI and below Patient History Medical History (Updated 04/22/25 @ 00:42 by Deuce Sam DO) Hearing impaired Arthritis GERD (gastroesophageal reflux disease) Diabetes Surgical History Status post bilateral inguinal hernia repair, follow-up exam Hx of appendectomy Hx of total knee replacement Social History marital status: household members: spouse and friend(s) occupational status: employed Smoking Status: Former smoker alcohol intake: never substance use type: does not use Smoking Status: Former smoker Exam Narrative Exam Narrative: GENERAL: [74] year old patient appears stated age. Well-developed patient, in mild distress. HEAD: Atraumatic. Normocephalic. EYES: Pupils equal round and reactive. Extraocular motions intact. No scleral icterus. No injection or drainage. ENT: Nose without bleeding, purulent drainage. Throat without erythema, tonsillar hypertrophy or exudate. Airway patent. NECK: Trachea midline. Non tender CARDIOVASCULAR: Regular rate and rhythm without murmurs, gallops, or rubs. RESPIRATORY: Clear to auscultation. Breath sounds equal bilaterally. No wheezes, rales, or rhonchi. GASTROINTESTINAL: Abdomen soft, non-tender, nondistended. EXTREMITIES: No edema or joint tenderness. BACK: Nontender without deformity or crepitance. No flank tenderness. NEURO: AOx3. SKIN: Sutures intact with no obvious purulent discharge but very minimal expression of a drop of blood on firm palpation of surgical site motor sensory intact +2 dorsalis pedis +2 posterior tib pulse cap refill less than 2 seconds. Initial Vital Signs Initial Vital Signs: Vital Signs Temperature 97.0 F L 04/21/25 19:40 Pulse Rate 114 H 04/21/25 19:40 Respiratory Rate 16 04/21/25 19:40 Blood Pressure 130/72 04/21/25 19:40 Pulse Oximetry 96 04/21/25 19:40 Oxygen Delivery Method Room Air 04/21/25 19:40 Course Vital Signs Vital signs: Vital Signs - 8 hr 04/21/25 19:40 Temperature 97.0 F L Pulse Rate 114 H Respiratory Rate 16 Blood Pressure 130/72 Pulse Oximetry 96 Oxygen Delivery Method Room Air MDM - Extremity (Nontraumatic) MDM Narrative Medical decision making narrative: Vital signs, nurse triage note, medication list, previous ER visits, and all imaging study reviewed. Wound dressing completely taken off along with splint with no obvious gross purulent drainage or eduardo bleeding seen. Bleeding spontaneously on its own without any other acute interventions needed. Patient placed in a posterior splint and redressed. Case discussed with Dr. Torrez orthopedic doctor on-call that this is quite common for just a trace of bleeding and to re-dress the wound and follow up as outpatient. Discharge Plan Departure Patient Disposition: Home Clinical Impression: Bleeding Activity Restrictions/Additional Instructions: Return with new or worsening symptoms. Follow up with orthopedic doctor call office for appointment for reexamination. Prescriptions: No Action levothyroxine 125 mcg capsule 175 mcg PO DAILY Lantus Solostar U-100 Insulin 100 unit/mL (3 mL) insulin pen 15 unit SUBCUT BID Rx Instructions: took 8 units last night insulin lispro [Humalog KwikPen Insulin] 100 unit/mL insulin pen 30 unit SUBCUT QAC Referrals: Pantera Hale MD [Primary Care Provider, Family Practice] Stand Alone Forms: Patient Portal/API
[2025-04-22 00:55] VITALS: BP 134/74; PULSE 97; RESP 16; O2SAT 97
== END 2025-04-22 00:59 | disposition home or self-care (01) ==
PROVIDERS: Emergency Provider Family Medicine; PCP Family Medicine
DX: Z98.890 Other specified postprocedural states (principal)
CPT/HCPCS: 99282